=== PATIENT | female | born 1990 | race Hispanic/Latino ===

== ENCOUNTER 2019-04-23 10:21 | Inpatient (IN) | payer OTHER ==
[2019-04-22 10:42] LABS: Urine Appearance CLOUDY; Urine Bilirubin NEGATIVE (NEG); Urine Blood TRACE (NEG); Urine Color YELLOW; Urine Glucose NEGATIVE (NEG); Urine Protein NEGATIVE (NEG); Urine Specific Gravity 1.015 (1.005-1.030); Urine pH 6.5 (5.0-7.0)
[2019-04-22 10:43] LABS: Absolute Lymphocytes (CBC) 1.5 K/uL (0.7-4.9); Basophils % 0.4 % (0-1.3); Hematocrit 36.3 % (36.0-45.0); Lymphocytes % 16.9 % (15.3-44.8); MPV 8.3 fL (7.6-11.3); RBC Red Blood Cell Count 4.39 M/uL (3.86-4.86)
[2019-04-22 10:55] LABS: Urine Bacteria >50 /HPF (<20); Urine RBC 20-50 /HPF (NONE SEEN)
[2019-04-22 10:56] LABS: Urine Amorphous Sediment 2+ /HPF (NONE SEEN); Urine Culture Reflex Order REFLEXED
[2019-04-23 00:15] LABS: RPR (Rapid Plasma Reagin) NON-REACT (NON-REACT)
[~2019-04-23 10:21] MED LIST: CEFAZOLIN IVP SCH; NA CHLORIDE 0.9% IVP SCH
[2019-04-23] MEDS ORDERED: Ringers Lactate 1,000 ML IV PRN (10:49)
[2019-04-23] MEDS ORDERED: CARBOPROST TROME 250 MCG/ML IM ONE (10:53)
[2019-04-23] MEDS ORDERED: METHYLERGONOVINE 0.2MG/ML AMP IM ONE (10:53)
[2019-04-23] MEDS ORDERED: Ringers Lactate 1,000 ML IV SCH ×2 (11:00→19:00)
[2019-04-23 11:03] VITALS: BMI 34.2
[2019-04-23] MEDS ORDERED: NA CIT/CITRIC AC 30 ML ORAL UDC PO ONE (11:07)
[2019-04-23] MEDS ORDERED: FAMOTIDINE 20 MG/2 ML VIAL IV ONE (11:37)
[2019-04-23] MEDS ORDERED: METOCLOPRAMIDE 10 MG/2mL INJ IV SCH (12:00)
[2019-04-23] MEDS ORDERED: MORPHINE SULFATE/PF 1 MG/ML (10 ML AMP) ONE (12:16)
[2019-04-23] MEDS ORDERED: OXYTOCIN 10 UNIT/ML ML IV ONE (12:16)
[2019-04-23] MEDS ORDERED: EPHEDRINE SULF 50 MG/ML VIAL ONE ×2 (12:44)
[2019-04-23] MEDS ORDERED: NS 0.9% VIAL 10 ML ONE (12:44)
[2019-04-23] MEDS ORDERED: ACETAMINOPHEN 500 MG TAB PO PRN (13:33)
[2019-04-23] MEDS ORDERED: BISACODYL 10 MG RECTAL SUPP RECT PRN (13:33)
[2019-04-23] MEDS ORDERED: Oxycodone HCl/Acetaminophen 1 TAB TAB PO PRN (13:33)
[2019-04-23] MEDS ORDERED: ONDANSETRON 4 MG (ODT) TAB PO PRN (13:33)
--- NOTE | 2019-04-23 13:37 | P.OP ---
Onshore Diver: Pepe Serrano Preoperative diagnosis: term h/o 2 prior section Postoperative diagnosis: as above and uterine dehiscence Primary procedure: Repeat low transverse section Secondary procedure: Bilateral tubal ligation Estimated blood loss: 800cc Specimen: cord blood and placenta Findings: uterine dehiscence seen, female 9/9, Weight 7lb 11oz Operative Technique: The patient was taken to the operating room where spinal anesthesia was administered without difficulty. The patient was prepped and draped in the usual sterile fashion in the dorsal supine position with a leftward tilt. A Pfannenstiel skin incision was made with the scalpel and carried through to the underlying layer of fascia using the scalpel. The fascia was incised in the midline and extended laterally using De La Rosa scissors. Yuki clamps were used to elevate the superior aspect of the fascial incision, which was elevated, and the underlying rectus muscles were dissected off bluntly and using De La Rosa scissors. Attention was then turned to the inferior aspect of the fascial incision, which in similar fashion was grasped with Yuki clamps, elevated, and the underlying rectus muscles were dissected off bluntly and using the Bovie. The rectus muscles were dissected in the midline. The peritoneum was identified and entered using Metzenbaum scissors; this incision was extended superiorly and inferiorly with good visualization of the bladder. The bladder blade was inserted. Uterine dehisence was seen and a very thin remainder of the lower uterine segment. The lower uterine segment was incised in a transverse fashion using the scalpel and extended using minimal manual traction. Clear fluid was noted. The was subsequently delivered using a Kiwi vacuum due to anteflexed head. The nose and mouth were bulb suctioned. The cord was clamped and cut. The was subsequently handed to the awaiting nursery nurse. The placenta was delivered spontaneously intact with a three-vessel cord noted. The uterus was exteriorized and cleared of all clots and debris. The uterine incision was repaired in 2 layers using 0 vicryol sutures. Hemostasis was visualized. Attention was turned to the right fallopian tube, which was grasped with Shadia clamp using a modified Torri method, a 2 cm of segment of tube ligated x2, transected and specimen was sent to pathology. Attention was then turned to the left fallopian tube, which was grasped with Shadia clamp again using a modified [place] method, a 2 cm segment of tube was ligated x2 and transected. Hemostasis was visualized bilaterally. The uterus was returned to the abdomen, both fallopian tubes were visualized and were noted to be hemostatic. The uterine incision was reexamined and it was noted to be hemostatic. The rectus muscles were reapproximated in the midline using 0 Vicryl. The fascia was closed with 1 Vicryl suture, the subcutaneous layer was closed with 2-0 plain gut, and the skin was closed with 3 O Vicryl on a Kings needle. Sponge, lap, and instrument counts were correct x2. The patient was stable at the completion of the procedure and was subsequently transferred to the recovery room in stable condition. Complications: None Drain(s): Urinary catheter Transferred to: Recovery Room Condition: Good
[2019-04-23] MEDS ORDERED: ONDANSETRON 4 MG/2 ML VIAL ONE (15:10)
[2019-04-23] MEDS ORDERED: ONDANSETRON 4 MG/2 ML VIAL IV PRN (15:14)
[2019-04-23] MEDS ORDERED: PROMETHAZINE 25 MG/ML VIAL IV PRN (15:14)
[2019-04-23] MEDS ORDERED: IBUPROFEN 400 MG TAB PO PRN (16:28)
[2019-04-23] MEDS: KETOROLAC 30 MG/ML INJ IV PRN (19:12)
[2019-04-24] MEDS: KETOROLAC 30 MG/ML INJ IV PRN ×2 (01:01→11:22)
[2019-04-24 05:04] LABS: Absolute Lymphocytes (CBC) 1.3 K/uL (0.7-4.9); Basophils % 0.3 % (0-1.3); Hematocrit 31.8 % (36.0-45.0); Lymphocytes % 10.1 % (15.3-44.8); MPV 8.1 fL (7.6-11.3); RBC Red Blood Cell Count 3.78 M/uL (3.86-4.86)
[2019-04-24] MEDS: Oxycodone HCl/Acetaminophen 1 TAB TAB PO PRN ×2 (07:00→16:30)
[2019-04-24 08:21] LABS: Blood Morphology Comment NOT SEEN (NOT SEEN); Platelet Estimate ADEQ; Urine White Blood Cell Casts OK
[2019-04-24] MEDS ORDERED: FAMOTIDINE 20 MG/2 ML VIAL IV ONE (11:08)
[2019-04-25] MEDS: Oxycodone HCl/Acetaminophen 1 TAB TAB PO PRN ×2 (00:23→07:26)
[2019-04-25 07:47] VITALS: BP 121/66; TEMP 97.7
[2019-04-25] MEDS ORDERED: Tdap (Diph,Pertuss(Acell),Tet Vac) 0.5 ML SYR IMVAC ONE (10:29)
[2019-04-26 03:10] LABS: HBsAG Nonreactive (Nonreactive)
--- NOTE | 2019-04-26 11:35 | P.PN ---
Date of Service: 04/24/19 The patient is postop day 1 from a repeat section. She is doing well. She is tolerating diet. Her pain is well controlled. She is afebrile. She has no complaints today she is bonding well with the baby and is breast-feeding. Selected Entries 04/24/19 04/24/19 04/24/19 07:11 08:00 11:24 Temperature 97.8 F 98.5 F Pulse Rate 70 76 Respiratory 18 18 Rate Blood Pressure 109/55 L 109/61 Pain Level 3 Laboratory Tests 04/22/19 04/23/19 04/24/19 10:30 17:25 04:50 WBC 8.9 13.3 H D Hgb 12.5 10.7 L Hct 36.3 35.5 L 31.8 L Plt Count 239 228 Vital sign stable General: Resting in bed no distress Head and neck: Normocephalic atraumatic, supple Respiratory: Symmetric nonlabored breathing Abdomen: Soft, mildly distended, mildly tender. Incision clean dry and intact Bilateral lower extremities: No clubbing cyanosis or edema. Assessment and plan patient is postop day 1 after repeat section she is doing well. Pain is well controlled. Discontinue IV discontinue Musa catheter. Encourage patient to ambulate. Possible discharge home tomorrow.
--- NOTE | 2019-04-26 11:41 | P.DS ---
Admission Date: 04/23/19 Discharge Date: 04/25/19 Disposition: ROUTINE DISCHARGE Discharge Condition: GOOD Brief History of Present Illness: Patient was admitted for repeat section at 39 weeks gestation. See H& P for further details. Hospital Course: Patient has done well well following delivery. Her pain is been well managed. She is tolerating a regular diet. She is ambulating well. She is having minimal to moderate vaginal bleeding. She is breast-feeding. She denies fevers chills. She is passing gas. She has not yet had a bowel movement. Vital Signs/Physical Exam: Temp Pulse Resp BP Pulse Ox 97.7 F 74 18 121/66 98 04/25/19 07:15 04/25/19 07:15 04/25/19 08:26 04/25/19 07:15 04/25/19 03:00 General: Alert, Oriented x3, Mild distress HEENT: Atraumatic Neck: Supple Respiratory: Normal air movement Cardiovascular: No edema, Normal pulses Gastrointestinal: No rebound, No guarding (Incision clean dry and intact) Laboratory Data at Discharge: WBC 13.3 K/uL (4.3-10.9) H D 04/24/19 04:50 Hgb 10.7 g/dL (12.0-15.0) L 04/24/19 04:50 Hct 31.8 % (36.0-45.0) L 04/24/19 04:50 Plt Count 228 K/uL (152-406) 04/24/19 04:50 Home Medications: Pnv59/Iron,Carb&Fum/FA/Dss/Dha [Citranatal [place] Capsule] 1 tab DAILY Ferrous Sulfate [Ferrous Sulfate*] 325 mg PO BID #60 tab 08/25/16 Codeine/APAP [Tylenol W/Codeine #3 tab] 1 tab PO Q6HP PRN #24 tab 04/25/19 New Medications: Codeine/APAP [Tylenol W/Codeine #3 tab] 1 tab PO Q6HP PRN #24 tab PRN Reason: Pain Diet: Regular Activity: No lifting more than 10 lbs Followup: Adair Cordoba, [ACTIVE - CAN ADMIT] - (Follow up care with Dr. Cordoba in 4- 6 weeks for post visit.)
== END 2019-04-25 10:50 | disposition home or self-care (01) | DRG 785 ==
LOC: 2ND-WC 10:21
PROVIDERS: ADMIT Student in an Organized Health Care Education/Training Program; ATTEND Student in an Organized Health Care Education/Training Program
PROC: 10D00Z1 Extraction of Products of Conception, Low, Open Approach (ICD-10-PCS; principal; 2019-04-23 12:30)
PROC: 0U570ZZ Destruction of Bilateral Fallopian Tubes, Open Approach (ICD-10-PCS; 2019-04-23 12:30)
DX: O90.0 Disruption of cesarean delivery wound (principal); Z37.0 Single live birth; Z23 Encounter for immunization
CPT/HCPCS: 36415; 81001; 85014; 85025; 86592; 86850; 86900; 86901; 87086; 87088; 87340; 88302; 88305; 88307; 90471; 90715; J0690; J2210; J2405; J2550; J2590; J2765